=== PATIENT | female | born 1955 | race Caucasian/White ===

== ENCOUNTER 2020-01-09 19:38 | Inpatient (IN) | payer OTHER ==
--- NOTE | 2020-01-09 20:02 | PDOC ---
Rapid Medical Evaluation Chief Complaint: Altered Mental Status Medical Evaluation: Allergies Allergy/AdvReac Type Severity Reaction Status Date / Time No Known Allergies Allergy Verified 01/09/20 19:59 01/09/20 20:00 I have performed a brief in-person evaluation of this patient. The patient presents with a chief complaint of:AMS w/ ataxia since this am and off, no focal sxs and no CP, SOB, change in BM, dysuria, n/v/f/c. H/o DM Pertinent physical exam findings:stable, well marvin and A&O x 3 I have ordered the following:labs/ua/CT The patient will proceed to the ED for further evaluation. Discharge Disposition - Diagnosis AMS (altered mental status) Qualifiers: Altered mental status type: unspecified Qualified Code(s): R41.82 - Altered mental status, unspecified - Referrals - Patient Instructions - Post Discharge Activity
--- NOTE | 2020-01-09 20:18 | PDOC ---
Attending Attestation - Resident Resident Name: Alek Gatica - ED Attending Attestation I have performed the following: I have examined & evaluated the patient, The case was reviewed & discussed with the resident, I agree w/resident's findings & plan - HPI HPI: 01/09/20 21:56 see resident hpi - Physicial Exam PE: 01/09/20 21:56 see resident exam - Medical Decision Making 01/09/20 22:04 64-year-old female initially presenting with 1 day of altered mental status reported by family, upon further questioning significant other states that she has not been acting normally for months She did have some difficulty ambulating today which caused a fall which is what prompted him to send her to the hospital CT scan shows multiple areas of chronic infarct and microvascular changes Plan for admission to medical service for further evaluation Discharge - Discharge Information Problems reviewed: Yes Clinical Impression/Diagnosis: AMS (altered mental status) Qualifiers: Altered mental status type: unspecified Qualified Code(s): R41.82 - Altered mental status, unspecified - Follow up/Referral Referrals: Karen Marley MD [Primary Care Provider] - - Patient Discharge Instructions - Post Discharge Activity
--- NOTE | 2020-01-09 20:32 | PDOC ---
History of Present Illness - General Chief Complaint: Altered Mental Status Stated Complaint: DIZZINESS,AMS Time Seen by Provider: 01/09/20 20:09 - History of Present Illness Initial Comments: 01/09/20 20:30 64 yo male with pmh of DM presents to ED for blurry vision and inability to find words that started today when she woke up at 9:30 am which was about ten hours before ED arrival. According to pt her last well known was the night before. She explains she has right sided blurry vision in her eyes and inability to find words. Pt has never had symptoms in the past. Pt denies headache, cough, fevers, chills, chest pain, shortness of breath, dysuria or urinary frequency. After called where story was a little different who explained pt has been having memory loss and trouble finding words for the past two months which has been progressively worse. Pt for the last two days have been unsteady on her feet where today she fell and that is why she was brought in. Pt did not head, did not lose consciousness and was able to get right after fall. PMH: DM PSH: meds: Metformin and aspirin Allergies: denies Social: denies smoking, drinking and drugs PCP: Dr. Pinto 01/09/20 22:23 01/09/20 23:36 tPA Exclusion checklist 3-4.5h - Time Elapsed Date last known well: 01/07/20 Time last known well: 09:00 Elaspsed time: 2 Day(s) and 14 Hour(s) and 50 Minutes - Thrombolytic Therapy Candidate Is patient eligible for thrombolytic therapy: No - Ineligibility reason(s) Reasons No tPA given: Outside of window - delayed arrival NIH Stroke Scale - Last Known Well Date/Time & Onset Date Last Known Well: 01/07/20 Time Last Known Well: 09:00 - Initial Evaluation Level of consciousness: Alert Ask patient the month and their age: Answers one correctly Ask patient to open & close eyes; make fist and let go: Obeys both correctly Best gaze (horizontal eye movement): Normal Visual field testing: No visual field loss Facial paresis (Show teeth/raise eyebrows/close eyes tight): Normal symmetrical movement Motor Function: Left Arm: Normal Motor Function: Right Arm: Normal (extends arm 90 (or 45) degrees for 10 seconds without drift Motor Function: Left Leg: Drift Motor Function: Right Leg: Drift Limb Ataxia: No ataxia Sensory(Use pinprick test arms,legs,trunk,face/side to side): Normal Best language (Describe picture, name items, read sentences): Mild to moderate aphasia Dysarthria (read several words): Normal articulation Extinction and Inattention: No abnormality - Total Score NIH Stroke Scale Score: 4 Past History - Medical History Allergies/Adverse Reactions: Allergies Allergy/AdvReac Type Severity Reaction Status Date / Time No Known Allergies Allergy Verified 01/09/20 19:59 COPD: No Diabetes: Yes - Reproductive History Is Patient Now?: No - Psycho-Social/Smoking History Smoking History: Never smoked - Substance Abuse Hx (Audit-C & DAST Scrn) How often the patient has a drink containing alcohol: Never Score: In Men: 4 or > Positive; In Women: 3 or > Positive: 0 Screen Result (Pos requires Nsg. Audit-10AR): Negative In the last yr the pt used illegal drug/Rx for NonMed reason: No Score: Yes response is considered Positive: 0 Screen Result (Positive result requires Nsg. DAST-10): Negative Review of Systems - Review of Systems Comments:: 01/09/20 22:32 GENERAL/CONSTITUTIONAL: No fever or chills. No weakness. HEAD, EYES, EARS, NOSE AND THROAT: blurry vision in right eye. No ear pain or discharge. No sore throat. CARDIOVASCULAR: No chest pain or shortness of breath RESPIRATORY: No cough, wheezing, or hemoptysis. GASTROINTESTINAL: No nausea, vomiting, diarrhea or constipation. GENITOURINARY: No dysuria, frequency, or change in urination. MUSCULOSKELETAL: No joint or muscle swelling or pain. No neck or back pain. SKIN: No rash NEUROLOGIC: No headache, vertigo, loss of consciousness, or change in strength/sensation. ENDOCRINE: No increased thirst. No abnormal weight change HEMATOLOGIC/LYMPHATIC: No anemia, easy bleeding, or history of blood clots. ALLERGIC/IMMUNOLOGIC: No hives or skin allergy. *Physical Exam - Vital Signs Last Vital Signs Temp Pulse Resp BP Pulse Ox 98.0 F 85 18 147/73 99 01/09/20 19:59 01/09/20 19:59 01/09/20 19:59 01/09/20 19:59 01/09/20 19:59 - Physical Exam 01/09/20 22:26 GENERAL: Awake, alert, and oriented to person and place, in no acute distress HEAD: No signs of trauma, normocephalic, atraumatic EYES: PERRLA, EOMI, sclera anicteric, conjunctiva clear ENT: Auricles normal inspection, hearing grossly normal, nares patent, orophary nx clear without exudates. Moist mucosa NECK: Normal ROM, supple, no lymphadenopathy, JVD, or masses LUNGS: No distress, speaks full sentences, clear to auscultation bilaterally HEART: Regular rate and rhythm, normal S1 and S2, no murmurs, rubs or gallops, peripheral pulses normal and equal bilaterally. ABDOMEN: Soft, nontender, normoactive bowel sounds. No guarding, no rebound. No masses EXTREMITIES : Normal inspection, Normal range of motion, no edema. No clubbing or cyanosis. NEUROLOGICAL: Cranial nerves II through XII intact. Normal sensation throughout. 5/5 muscle strength in bilateral upper and lower ext. Finger to nose intact. Heel to connor intact. Visual darden intact. Unable to fully read sentences. Unable to correctly identify date. Pt has positive romberg test and negative pronator test. Pt has ataxic gait, but pt usually walks with walker at baseline. SKIN: Warm, Dry, normal turgor, no rashes or lesions noted Heart Score/ECG Review - ECG Impressions Comment:: 01/09/20 22:29 Normal sinus rhythm at 91 bpm Normal DC, QRS, and QT interval T wave flattening in II V2 ED Treatment Course - LABORATORY CBC & Chemistry Diagram: 01/09/20 21:20 01/09/20 21:20 Medical Decision Making - Medical Decision Making 01/09/20 22:32 64 yo female coming in with blurry vision, inability to find words, and wobbly gait for two days. Initial workup was for stroke but after further discussion with will work up for AMS and fall. Will get cbc, cmp, ekg, ct scan of head, coags, TSH, and urine. Will admit for AMS. 01/09/20 23:[address] scan showed chronic bilateral cerebral infarcts and marked periventricular and subcortical chronic micrvascular ischemic changes and mild bilateral cerebellar atrophy. Son called who agreed with fathers story. Would like call back with progress ([phone]) Pt labs showed no gross abnormalities will admit for AMS. 01/09/20 23:50 Pt HPI and ED course was spoken with DIRECTOR STATISTICAL PROGRAMMING Angelica. Pt will be admitted to Dr. Lepe. Discharge - Discharge Information Problems reviewed: Yes Clinical Impression/Diagnosis: AMS (altered mental status) Qualifiers: Altered mental status type: unspecified Qualified Code(s): R41.82 - Altered mental status, unspecified Condition: Good - Admission Yes - Follow up/Referral Referrals: Karen Marley MD [Primary Care Provider] - - Patient Discharge Instructions - Post Discharge Activity
[2020-01-09 21:31] LABS: BASO % 0.6 % (0-2.0); EOS % 2.1 % (0-4.5); HEMATOCRIT 40.6 % (32.4-45.2); HEMOGLOBIN 13.6 GM/dL (10.7-15.3); LYMPH % 19.7 % (8-40); MCH 31.4 pg (25.7-33.7); MCHC 33.4 g/dl (32.0-36.0); MEAN PLT VOLUME 9.3 fl (7.5-11.1); MONO % 9.4 % (3.8-10.2); NEUT % 68.2 % (42.8-82.8); PLATELET COUNT 242 K/MM3 (134-434); RBC 4.32 M/mm3 (3.60-5.2); RDW 13.1 % (11.6-15.6); WHITE BLOOD COUNT 7.1 K/mm3 (4.0-10.0)
[2020-01-09 21:40] LABS: INR 0.96 (0.83-1.09); PROTHROMBIN TIME (PATIENT) 11.3 SEC (9.7-13.0)
[2020-01-09 21:43] LABS: ACTIVATED PTT 29.4 SECONDS (25.2-36.5)
[2020-01-09 22:10] LABS: ALBUMIN 3.4 g/dl (3.4-5.0); BILIRUBIN,TOTAL 0.4 mg/dL (0.2-1); BLOOD UREA NITROGEN 14.4 mg/dL (7-18); CALCIUM 9.2 mg/dL (8.5-10.1); CREATININE 0.8 mg/dL (0.55-1.3); POTASSIUM 3.8 mmol/L (3.5-5.1); TOT PROT 7.1 g/dl (6.4-8.2)
[2020-01-09 22:11] LABS: CHOLESTEROL 182 mg/dL (50-200); HDL CHOLESTEROL 66 mg/dL (40-60); LDL CHOLESTEROL (ONLY SJRH) 97 mg/dL (5-100); TRIGLYCERIDES 104 mg/dL (0-150)
[2020-01-09 23:10] LABS: URINE APPEARANCE Clear; URINE BILIRUBIN Negative (NEGATIVE); URINE COLOR Yellow; URINE GLUCOSE (UA) 2+ (NEGATIVE); URINE KETONE Trace (NEGATIVE); URINE LEUK ESTERASE 1+ (NEGATIVE); URINE NITRITE Negative (NEGATIVE); URINE PROTEIN Negative (NEGATIVE); URINE UROBILINOGEN 0.2 mg/dL (0.2-1.0)
[2020-01-09] MEDS ORDERED: ASPIRIN 81 MG CHEWABLE TABLETS PO ONE (23:36)
--- NOTE | 2020-01-10 00:51 | HP ---
CHIEF COMPLAINT: AMS, Blurred Vision PCP: Deann Marley HISTORY OF PRESENT ILLNESS: This is a 64 y/o female with a PMHx of DM. Who presents to the ED for AMS, R- eye blurred vision, dysarthria, s/p fall. Patient is confused unable to provide HPI. Per ED resident, patient's provided HPI. He reports that the patient has had memory loss, search for words x 2 months. He reports patient having an unsteady gait x 2 days. ER course was notable for: (1) Head CT- no acute ICH, multiple chronic b/l cerebral infarcts, mild bilateral cerebellar atrophy (2) (3) Recent Travel: None PAST MEDICAL HISTORY: DM PAST SURGICAL HISTORY: Social History: Smoking: Denies Alcohol: Denies Drugs: Denies Lives with spouse Allergies No Known Allergies Allergy (Verified 01/09/20 19:59) HOME MEDICATIONS: REVIEW OF SYSTEMS CONSTITUTIONAL: Absent: fever, chills, diaphoresis, generalized weakness, malaise, loss of appetite, weight change HEENT: visual changes Absent: rhinorrhea, nasal congestion, throat pain, throat swelling, difficulty swallowing, mouth swelling, ear pain, eye pain CARDIOVASCULAR: Absent: chest pain, syncope, palpitations, irregular heart rate, lightheadedness, peripheral edema RESPIRATORY: Absent: cough, shortness of breath, dyspnea with exertion, orthopnea, wheezing, stridor, hemoptysis GASTROINTESTINAL: Absent: abdominal pain, abdominal distension, nausea, vomiting, diarrhea, constipation, melena, hematochezia GENITOURINARY: Absent: dysuria, frequency, urgency, hesitancy, hematuria, flank pain, genital pain MUSCULOSKELETAL: Absent: myalgia, arthralgia, joint swelling, back pain, neck pain SKIN: Absent: rash, itching, pallor HEMATOLOGIC/IMMUNOLOGIC: Absent: easy bleeding, easy bruising, lymphadenopathy, frequent infections ENDOCRINE: Absent: unexplained weight gain, unexplained weight loss, heat intolerance, cold intolerance NEUROLOGIC: unsteady gait, mental status changes Absent: headache, focal weakness or paresthesias, dizziness, seizure, bladder or bowel incontinence PSYCHIATRIC: Absent: anxiety, depression, suicidal or homicidal ideation, hallucinations. PHYSICAL EXAMINATION Vital Signs - 24 hr 01/09/20 19:59 Temperature 98.0 F Pulse Rate 85 Respiratory 18 Rate Blood Pressure 147/73 O2 Sat by Pulse 99 Oximetry (%) GENERAL: Awake, alert, and oriented to name, year, president, in no acute distress. HEAD: Normal with no signs of trauma. EYES: Pupils equal, round and reactive to light, extraocular movements intact, sclera anicteric, conjunctiva clear. No lid lag. EARS, NOSE, THROAT: Ears normal, nares patent, oropharynx clear without exudat es. Moist mucous membranes. NECK: Normal range of motion, supple without lymphadenopathy, JVD, or masses. LUNGS: Breath sounds equal, clear to auscultation bilaterally. No wheezes, and no crackles. No accessory muscle use. HEART: Regular rate and rhythm, normal S1 and S2 without murmur, rub or gallop. ABDOMEN: Soft, nontender, not distended, normoactive bowel sounds, no guarding, no rebound, no masses. No hepatomegaly or splenomegaly. MUSCULOSKELETAL: Normal range of motion at all joints. No bony deformities or tenderness. No CVA tenderness. UPPER EXTREMITIES: 2+ pulses, warm, well-perfused. No cyanosis. No clubbing. No peripheral edema. LOWER EXTREMITIES: 2+ pulses, warm, well-perfused. No calf tenderness. No peripheral edema. NEUROLOGICAL: Cranial nerves II-XII intact. Normal speech. Gait not observed. PSYCHIATRIC: Cooperative. Good eye contact. Appropriate mood and affect. SKIN: Warm, dry, normal turgor, no rashes or lesions noted, normal capillary refill. Laboratory Results - last 24 hr 01/09/20 01/09/20 01/09/20 20:28 21:20 21:20 WBC RBC Hgb Hct MCV MCH MCHC RDW Plt Count MPV Absolute Neuts (auto) Neutrophils % Lymphocytes % Monocytes % Eosinophils % Basophils % Nucleated RBC % PT with INR 11.30 INR 0.96 PTT (Actin FS) 29.4 Sodium Cancelled Potassium Cancelled Chloride Cancelled Carbon Dioxide Cancelled Anion Gap Cancelled BUN Cancelled Creatinine Cancelled Est GFR (CKD-EPI)AfAm Cancelled Est GFR (CKD-EPI)NonAf Cancelled POC Glucometer 181 Random Glucose Cancelled Calcium Cancelled Total Bilirubin Cancelled AST Cancelled ALT Cancelled Alkaline Phosphatase Cancelled Creatine Kinase 76 Troponin I < 0.02 Total Protein Cancelled Albumin Cancelled Triglycerides 104 Cholesterol 182 Total LDL Cholesterol 97 HDL Cholesterol 66 H TSH Free T4 Urine Color Urine Appearance Urine pH Ur Specific [place] Urine Protein Urine Glucose (UA) Urine Ketones Urine Blood Urine Nitrite Urine Bilirubin Urine Urobilinogen Ur Leukocyte Esterase Alcohol, Quantitative < 3 01/09/20 01/09/20 01/09/20 21:20 21:20 22:35 WBC 7.1 RBC 4.32 Hgb 13.6 Hct 40.6 MCV 94.0 MCH 31.4 MCHC 33.4 RDW 13.1 Plt Count 242 MPV 9.3 Absolute Neuts (auto) 4.8 Neutrophils % 68.2 Lymphocytes % 19.7 Monocytes % 9.4 Eosinophils % 2.1 Basophils % 0.6 Nucleated RBC % 0 PT with INR INR PTT (Actin FS) Sodium 139 Potassium 3.8 Chloride 103 Carbon Dioxide 30 Anion Gap 6 L BUN 14.4 Creatinine 0.8 Est GFR (CKD-EPI)AfAm 91.58 Est GFR (CKD-EPI)NonAf 79.01 POC Glucometer Random Glucose 186 H Calcium 9.2 Total Bilirubin 0.4 AST 23 ALT 17 Alkaline Phosphatase 104 Creatine Kinase Troponin I Total Protein 7.1 Albumin 3.4 Triglycerides Cholesterol Total LDL Cholesterol HDL Cholesterol TSH 2.71 Free T4 1.18 Urine Color Yellow Urine Appearance Clear Urine pH 7.0 Ur Specific [place] 1.020 Urine Protein Negative Urine Glucose (UA) 2+ H Urine Ketones Trace Urine Blood Negative Urine Nitrite Negative Urine Bilirubin Negative Urine Urobilinogen 0.2 Ur Leukocyte Esterase 1+ H Alcohol, Quantitative ASSESSMENT/PLAN: This is a 64 y/o female with a PMHx of DM. Admitted to Telemetry for Acute Metabolic Encephalopathy, TIA for further evaluation of their emergent condition. Plan: See Problem List FEN D50.45%NS@42ml/hr Replete lytes prn NPO DVT ppx OOB SCDs Heparin SQ Dispo: Requires Inpatient Care Family Medical History Family History: Unable to Obtain Problem List - Problem (1) TIA (transient ischemic attack) Assessment/Plan: NIHSS [address] showed- no acute pathology, multiple chronic b/l cerebral infarcts, mild b/l cerebellar atrophy Appreciate Neurology consult Carotid Doppler r/o Stenosis Neuro checks Aspiration Precautions Cardiac monitoring Swallow Eval NPO Monitor CBC, CMP Fall Precautions PT eval Code(s): G45.9 - TRANSIENT CEREBRAL ISCHEMIC ATTACK, UNSPECIFIED (2) Acute metabolic encephalopathy Assessment/Plan: Likely secondary to TIA Head CT- neg ICH, multiple chronic bilateral cerebral infarcts. mild bilateral cerebellar atrophy Appreciate Neurology consult Neurochecks Aspiration Precautions Cardiac monitoring Swallow Eval NPO Monitor CBC, CMP Fall Precautions PT eval Consider MRI Brain- will defer to Neurology Code(s): G93.41 - METABOLIC ENCEPHALOPATHY (3) Diabetes mellitus Assessment/Plan: stable BGMs ISS when diet resumed HgbA1c in am Code(s): E11.9 - TYPE 2 DIABETES MELLITUS WITHOUT COMPLICATIONS (4) Encounter for screening laboratory testing for COVID-19 virus Assessment/Plan: Low Risk Covid PCR-pending Isolation Precautions Code(s): Z11.59 - ENCOUNTER FOR SCREENING FOR OTHER VIRAL DISEASES Visit type - Emergency Visit Emergency Visit: Yes ED Registration Date: 01/09/20 Care time: The patient presented to the Emergency Department on the above date and was hospitalized for further evaluation of their emergent condition. - New Patient This patient is new to me today: Yes Date on this admission: 01/09/20 - Critical Care Critical Care patient: No
[2020-01-10] MEDS ORDERED: ASPIRIN 81 MG CHEWABLE TABLETS ONE ×2 (02:40→11:33)
[2020-01-10] MEDS: DEXTROSE 5%-0.45% SALINE 1,000 ML IV SCH (03:59)
[2020-01-10 07:13] LABS: BASO % 0.8 % (0-2.0); EOS % 2.8 % (0-4.5); HEMATOCRIT 40.7 % (32.4-45.2); HEMOGLOBIN 13.7 GM/dL (10.7-15.3); LYMPH % 19.1 % (8-40); MCH 31.7 pg (25.7-33.7); MCHC 33.7 g/dl (32.0-36.0); MONO % 8.3 % (3.8-10.2); PLATELET COUNT 213 K/MM3 (134-434); RBC 4.33 M/mm3 (3.60-5.2); RDW 12.9 % (11.6-15.6); WHITE BLOOD COUNT 6.7 K/mm3 (4.0-10.0)
[2020-01-10 07:25] LABS: ALBUMIN 3.2 g/dl (3.4-5.0); BILIRUBIN,TOTAL 0.5 mg/dL (0.2-1); BLOOD UREA NITROGEN 9.5 mg/dL (7-18); CALCIUM 9.1 mg/dL (8.5-10.1); CREATININE 0.7 mg/dL (0.55-1.3); MAGNESIUM 1.8 mg/dL (1.8-2.4); POTASSIUM 3.1 mmol/L (3.5-5.1); TOT PROT 6.6 g/dl (6.4-8.2)
[2020-01-10] MEDS ORDERED: KCL 10 MEQ IVPB 10 MEQ/100 ML INFUS.BAG IVPB ONE (09:00)
[2020-01-10] MEDS: KCL 10 MEQ IVPB 10 MEQ/100 ML INFUS.BAG IVPB SCH ×3 (09:05→11:32)
--- NOTE | 2020-01-10 09:08 | EKG ---
Test Reason : Blood Pressure : / mmHG Vent. Rate : 078 BPM Atrial Rate : 078 BPM P-R Int : 128 ms QRS Dur : 090 ms QT Int : 388 ms P-R-T Axes : -22 004 033 degrees QTc Int : 442 ms NORMAL SINUS RHYTHM INFERIOR INFARCT , AGE UNDETERMINED CANNOT RULE OUT ANTERIOR INFARCT , AGE UNDETERMINED ABNORMAL ECG NO PREVIOUS ECGS AVAILABLE Confirmed by Angel Barker MD ([id number]) on 01/10/2020 9:08:08 AM Referred By: Confirmed By:Angel Barker MD
[2020-01-10] MEDS ORDERED: KCL 10 MEQ IVPB 20 MEQ/200 ML INFUS.BAG IVPB ONE (09:57)
[2020-01-10] MEDS ORDERED: ENOXAPARIN NA (PORCINE) 40 MG/0.4 ML DISP.SYRIN SQ ONE (10:02)
[2020-01-10] MEDS: ENOXAPARIN NA (PORCINE) 40 MG/0.4 ML DISP.SYRIN SQ SCH (10:07)
--- NOTE | 2020-01-10 10:09 | CONSULT ---
Admitting History and Physical - Admission History of Present Illness: 64 y/o female with a PMHx of DM. Who presents to the ED for AMS, R- eye blurred vision, dysarthria, s/p fall. Patient is confused unable to provide HPI. Per ED resident, patient's provided HPI. He reports that the patient has had memory loss, search for words x 2 months. He reports patient having an unsteady gait x [address]- no acute ICH, multiple chronic b/l cerebral infarcts, mild bilateral cerebellar atrophy Selected Entries 01/10/20 01/10/20 03:17 05:31 Temperature 98.2 F 97.3 F L Pulse Rate [ 83 Apical] Pulse Rate [ 87 Left Radial] Blood Pressure 149/70 121/79 [Left] O2 Sat by Pulse 98 96 Oximetry (%) Oxygen Delivery Room Air Room Air Method Laboratory Tests 01/09/20 01/10/20 01/10/20 21:20 06:00 06:20 WBC 7.1 6.7 COVID-19 (RYLIE) Pending Passed Dysphagia screening. 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 [employer] History - Admission Reason For Visit: ALTERED MENTAL STATUS - Diagnostics X-ray: Report Reviewed CT Scan: Report Reviewed MRI: Pending - General Mental Status: Alert and Oriented ([facility], [facility],Dec 2019), Awake and Alert, Able to Follow Commands Attention: Intact Ability to Follow Directions: Good Head/Neck Control: Good - Hearing Hearing: Functional Speech Evaluation - Communication Primary Language: GEORGIAN Communication: Yes: Aphasia (anomia with delayed word retrieval.) Oral Expression Ability: Yes: Mild Impairment - Speech Production Able to Make Needs Known: Yes: WNL, Mildly Impaired Intelligibility: Yes: WNL - Speech Characteristics Voice Loudness: Normal Voice Pitch: Yes: Normal Voice Phonatory-based Quality: Yes: Normal Speech Clarity: < 100% Nasal Resonance: Normal Articulation: Yes: Precise - Language/Auditory Comprehension Observation: Able to respond to yes/no queries: Yes, Yes/No Confusion: No, Comprehends Conversational Speech: Yes - Language/Verbal Expression Aphasia: Yes: Anomia Able to Respond to Simple Queries: Yes: Mildly Impaired Able to Communicate Wants and Needs: Yes: Mildly Impaired Functional Communication Status: Yes: Mildly Impaired - Swallow Evaluation/Bedside Assessment Oral Secretions: Yes: WFL Dentition: Yes: Adequate, Missing Teeth Facial Symmetry at Rest: Symmetrical Facial Symmetry on Retraction: Symmetrical Facial Movement: Controlled Sensation: Normal Against Resistance Opening: Normal Against Resistance Closing: Normal Pucker Lips: Normal Smile: Normal Lingual Movement: Normal, Symmetric Lingual Speed of Movement: Normal Lingual Movement Strgth Against Opposition: Normal Lingual Movement Characteristics: Normal Laryngeal Movement: Labored,delay initiation Rate of Intake: WFL Bolus Size: WFL Labial Seal: WFL Chewing: Impaired (missing dentition posteriorally, requested chopped food for increased ease of mastication) Oral Prep Time: WFL A-P Transit: WFL Pocketing: None Timing of Swallow: Delayed Coughing/Throat Clear: No Recommendations - Speech Evaluation, Impression/Plan Impression: Fully oriented with good recall about pending Presidential election. Mild word retrieval difficulty in conversation. Pt aware, stating this has been occuring recently, before admission. She reports that she is also incontinent of Urine x 2 weeks. Good confrontation naming - Disposition Discharge to: To be Determined - Dysphagia Impressions/Plan Dysphagia Impressions: Minimal Impairment, Ongoing Evaluation *Silent aspiration: cannot be R/O at bedside Dysphagia Treatment Plan: Trial Feedings, Safe Rate, 1/2 tsp. at a time, Elevate HOB during feed Recommendations: Modified Barium Swallow (if cough, congestion, fever) - Recommendations Diet Consistency: Other (Regular soft,chopped diet) Medication Administration: Whole with water Liquids: Thin Liquids
[2020-01-10 10:10] LABS: COCAINE, UR NEGATIVE ng/ml (CUTOFF=300); OPIATES, URI NEGATIVE ng/ml (CUTOFF=300); PHENCYCLIDINE,URINE NEGATIVE ng/ml (CUTOFF=25); URINE BARBITURATES NEGATIVE ng/ml (CUTOFF=200)
[2020-01-10 10:18] LABS: METHADONE, UR NEGATIVE ng/ml (CUTOFF=300); URINE AMPHETAMINES NEGATIVE ng/ml (CUTOFF=500); URINE BENZODIAZEPINES NEGATIVE ng/ml (CUTOFF=200)
[2020-01-10] MEDS ORDERED: ASPIRIN 81 MG CHEWABLE TABLETS PO SCH (10:30)
--- NOTE | 2020-01-10 14:28 | ECHO ---
Name: LAKSHMITONIOSAM Feng Exam:Adult Echocardiogram Study Date: 01/10/2020 01:27 PM Age: 64 yrs Reason For Study: r/o pfo hx TIA cva MMode/2D Measurements & Calculations IVSd: 1.2 cm Ao root diam: 3.0 cm LVIDd: 3.7 cm LA dimension: 2.7 cm LVIDs: 2.5 cm LVPWd: 1.5 cm LVPWs: 1.4 cm EDV(Teich): 58.5 ml ESV(Teich): 22.2 ml LVOT diam: 2.0 cm RV S Brannon: 14.0 cm/sec Doppler Measurements & Calculations MV E max brannon: 64.7 cm/sec Ao V2 max: 121.7 cm/sec MV A max brannon: 88.8 cm/sec Ao max P.9 mmHg MV E/A: 0.73 RADHA(V,D): 2.6 cm2 MV dec time: 0.21 sec LV V1 max P.8 mmHg PA V2 max: 120.8 cm/sec LV V1 max: 97.2 cm/sec PA max P.9 mmHg Lat Peak E' Brannon: 6.4 cm/sec Lat E/e': 10.2 Procedure A complete two-dimensional transthoracic echocardiogram was performed (2D, M-mode, Doppler and color flow Doppler). Left Ventricle There is moderate concentric left ventricular hypertrophy. The left ventricle is normal in size. Left ventricular systolic function is normal. Ejection Fraction = 65%. E/A reversal consistent with but no t diagnostic of poor LV compliance. The left ventricular wall motion is normal. Right Ventricle The right ventricle is normal in size and function. Atria Normal left and right atrial size and function. There is no Doppler evidence for an atrial septal def ect. Mitral Valve The mitral valve is normal in structure and function. There is trace mitral regurgitation. Tricuspid Valve The tricuspid valve is normal in structure and function. There is trace tricuspid regurgitation. Ther e was insufficient TR detected to calculate RV systolic pressure. Pulmonic Valve The pulmonic valve is normal in structure and function. Great Vessels The aortic root is normal size. Pericardium/Pleura There is no pericardial effusion. There is no pleural effusion. Interpretation Summary The left ventricle is normal in size. There is moderate concentric left ventricular hypertrophy. Left ventricular systolic function is normal. Ejection Fraction = 65%. There is no Doppler evidence for an atrial septal defect. There is trace mitral regurgitation. There is trace tricuspid regurgitation. MD Angel Barker 01/10/2020 02:27 PM
--- NOTE | 2020-01-10 15:49 | PN ---
Teaching Attending Note Name of Resident: Mj Carrillo ATTENDING PHYSICIAN STATEMENT I saw and evaluated the patient. I reviewed the resident's note and discussed the case with the resident. I agree with the resident's findings and plan as documented. SUBJECTIVE: Patient reports feeling well, has no complaints OBJECTIVE: Vital Signs Period Temp Pulse Resp BP Sys/Zeng Pulse Ox Last 24 Hr 97.3 F-98.3 F 83-100 18-20 116-159/70-87 96-99 Physical Exam as per resident note ASSESSMENT AND PLAN: 64 y/o F with PMH as noted who presents with vision changes, dysarthria and hx of falls. TIA: Patient noted to have multiple old stroke on CT Head Carotid Doppler noted Echo with bubble study, MRI/MRA Continue ASA Statin Neuro Consultation speech/swallow eval PT/OT Eval Rest of plan as per resident note
--- NOTE | 2020-01-10 17:11 | PN ---
Physical Exam: SUBJECTIVE: No overnight events. Patient seen and examined. Endorses blurred vision in R eye improved. No complaints. OBJECTIVE: Vital Signs Period Temp Pulse Resp BP Sys/Zeng Pulse Ox Last 24 Hr 97.3 F-98.3 F 83-100 18-20 116-159/70-87 96-99 GENERAL: The patient is awake, alert, and fully oriented, in no acute distress. mildly aphasic HEENT: Normal with no signs of trauma. No ptosis. moist mucous membranes. LUNGS: Breath sounds equal, clear to auscultation bilaterally, no wheezes, no crackles, no accessory muscle use. HEART: Regular rate and rhythm, S1, S2 without murmur, rub or gallop. ABDOMEN: Soft, nontender, nondistended, normoactive bowel sounds EXTREMITIES: 2+ pulses, warm, well-perfused, no edema. NEUROLOGICAL: Cranial nerves II through XII grossly intact. slightly slurred speech. limps with R foot when ambulating. Strength 5/5 throughout. sensation intact throughout. Cerebellar function (finger to nose, heel to connor, rapid alternating movements) intact. During Romberg, pt swayed, but did NOT fall PSYCH: Normal mood, normal affect. SKIN: Warm, dry, normal turgor, no rashes or lesions noted Laboratory Results - last 24 hr 01/09/20 01/09/20 01/09/20 20:28 21:20 21:20 WBC RBC Hgb Hct MCV MCH MCHC RDW Plt Count MPV Absolute Neuts (auto) Neutrophils % Lymphocytes % Monocytes % Eosinophils % Basophils % Nucleated RBC % PT with INR 11.30 INR 0.96 PTT (Actin FS) 29.4 Sodium Cancelled Potassium Cancelled Chloride Cancelled Carbon Dioxide Cancelled Anion Gap Cancelled BUN Cancelled Creatinine Cancelled Est GFR (CKD-EPI)AfAm Cancelled Est GFR (CKD-EPI)NonAf Cancelled POC Glucometer 181 Random Glucose Cancelled Hemoglobin A1c % Calcium Cancelled Magnesium Total Bilirubin Cancelled AST Cancelled ALT Cancelled Alkaline Phosphatase Cancelled Creatine Kinase 76 Troponin I < 0.02 Total Protein Cancelled Albumin Cancelled Triglycerides 104 Cholesterol 182 Total LDL Cholesterol 97 HDL Cholesterol 66 H Vitamin B12 TSH Free T4 Urine Color Urine Appearance Urine pH Ur Specific [place] Urine Protein Urine Glucose (UA) Urine Ketones Urine Blood Urine Nitrite Urine Bilirubin Urine Urobilinogen Ur Leukocyte Esterase Opiates Screen Methadone Screen Barbiturate Screen Phencyclidine Screen Ur Amphetamines Screen MDMA (Ecstasy) Screen Benzodiazepines Screen Cocaine Screen U Marijuana (THC) Screen Alcohol, Quantitative < 3 Blood Type Antibody Screen 01/09/20 01/09/20 01/09/20 21:20 21:20 22:35 WBC 7.1 RBC 4.32 Hgb 13.6 Hct 40.6 MCV 94.0 MCH 31.4 MCHC 33.4 RDW 13.1 Plt Count 242 MPV 9.3 Absolute Neuts (auto) 4.8 Neutrophils % 68.2 Lymphocytes % 19.7 Monocytes % 9.4 Eosinophils % 2.1 Basophils % 0.6 Nucleated RBC % 0 PT with INR INR PTT (Actin FS) Sodium 139 Potassium 3.8 Chloride 103 Carbon Dioxide 30 Anion Gap 6 L BUN 14.4 Creatinine 0.8 Est GFR (CKD-EPI)AfAm 91.58 Est GFR (CKD-EPI)NonAf 79.01 POC Glucometer Random Glucose 186 H Hemoglobin A1c % Calcium 9.2 Magnesium Total Bilirubin 0.4 AST 23 ALT 17 Alkaline Phosphatase 104 Creatine Kinase Troponin I Total Protein 7.1 Albumin 3.4 Triglycerides Cholesterol Total LDL Cholesterol HDL Cholesterol Vitamin B12 TSH 2.71 Free T4 1.18 Urine Color Yellow Urine Appearance Clear Urine pH 7.0 Ur Specific [place] 1.020 Urine Protein Negative Urine Glucose (UA) 2+ H Urine Ketones Trace Urine Blood Negative Urine Nitrite Negative Urine Bilirubin Negative Urine Urobilinogen 0.2 Ur Leukocyte Esterase 1+ H Opiates Screen Methadone Screen Barbiturate Screen Phencyclidine Screen Ur Amphetamines Screen MDMA (Ecstasy) Screen Benzodiazepines Screen Cocaine Screen U Marijuana (THC) Screen Alcohol, Quantitative Blood Type Antibody Screen 01/10/20 01/10/20 01/10/20 06:00 06:00 06:00 WBC 6.7 RBC 4.33 Hgb 13.7 Hct 40.7 MCV 94.0 MCH 31.7 MCHC 33.7 RDW 12.9 Plt Count 213 MPV 10.0 Absolute Neuts (auto) 4.6 Neutrophils % 69.0 Lymphocytes % 19.1 Monocytes % 8.3 Eosinophils % 2.8 Basophils % 0.8 Nucleated RBC % 0 PT with INR INR PTT (Actin FS) Sodium 140 Potassium 3.1 L Chloride 105 Carbon Dioxide 24 Anion Gap 11 BUN 9.5 Creatinine 0.7 Est GFR (CKD-EPI)AfAm 107.62 Est GFR (CKD-EPI)NonAf 92.86 POC Glucometer Random Glucose 189 H Hemoglobin A1c % 6.1 Calcium 9.1 Magnesium 1.8 Total Bilirubin 0.5 AST 13 L ALT 15 Alkaline Phosphatase 80 Creatine Kinase Troponin I Total Protein 6.6 Albumin 3.2 L Triglycerides Cholesterol Total LDL Cholesterol HDL Cholesterol Vitamin B12 TSH Free T4 Urine Color Urine Appearance Urine pH Ur Specific [place] Urine Protein Urine Glucose (UA) Urine Ketones Urine Blood Urine Nitrite Urine Bilirubin Urine Urobilinogen Ur Leukocyte Esterase Opiates Screen Methadone Screen Barbiturate Screen Phencyclidine Screen Ur Amphetamines Screen MDMA (Ecstasy) Screen Benzodiazepines Screen Cocaine Screen U Marijuana (THC) Screen Alcohol, Quantitative Blood Type Antibody Screen 01/10/20 01/10/20 01/10/20 06:00 08:35 09:00 WBC RBC Hgb Hct MCV MCH MCHC RDW Plt Count MPV Absolute Neuts (auto) Neutrophils % Lymphocytes % Monocytes % Eosinophils % Basophils % Nucleated RBC % PT with INR INR PTT (Actin FS) Sodium Potassium Chloride Carbon Dioxide Anion Gap BUN Creatinine Est GFR (CKD-EPI)AfAm Est GFR (CKD-EPI)NonAf POC Glucometer Random Glucose Hemoglobin A1c % Calcium Magnesium Total Bilirubin AST ALT Alkaline Phosphatase Creatine Kinase Troponin I Total Protein Albumin Triglycerides Cholesterol Total LDL Cholesterol HDL Cholesterol Vitamin B12 365 TSH Free T4 Urine Color Urine Appearance Urine pH Ur Specific [place] Urine Protein Urine Glucose (UA) Urine Ketones Urine Blood Urine Nitrite Urine Bilirubin Urine Urobilinogen Ur Leukocyte Esterase Opiates Screen Negative Methadone Screen Negative Barbiturate Screen Negative Phencyclidine Screen Negative Ur Amphetamines Screen Negative MDMA (Ecstasy) Screen Negative Benzodiazepines Screen Negative Cocaine Screen Negative U Marijuana (THC) Screen Negative Alcohol, Quantitative Blood Type O POSITIVE Antibody Screen Negative Active Medications Generic Name Dose Route Start Last Admin Trade Name Freq PRN Reason Stop Dose Admin Aspirin 81 mg 01/10/20 10:30 01/10/20 11:40 Asa - PO 81 mg DAILY ZAKIYA Administration Atorvastatin Calcium 80 mg 01/10/20 22:00 Lipitor - PO HS ZAKIYA Enoxaparin Sodium 40 mg 01/10/20 10:00 01/10/20 10:07 Lovenox - SQ 40 mg DAILY ZAKIYA Administration Dextrose/Sodium Chloride 1,000 mls @ 42 mls/hr 01/10/20 00:45 01/10/20 03:59 D5-1/2ns - IV 42 mls/hr ASDIR ZAKIYA Administration CTH: multiple chronic b/l cerebral infarcts basal ganglia, frontal mei radiata. Punctuate chronic R thalamic infarct. Low attention focus in R upper delvin>chronic infarct vs wallerian degeneration. Periventricular & subcortical chronic microvascular ischemic changes. Mild b/l cerebellar atrophy CXR: weak inspiratory effort w/ resultant large heart EKG: NSR, 78 bpm, inferior infarct, age undetermined, QTC: 442 ASSESSMENT/PLAN: 64 F PMH DM p/w R-sided blurry vision for 1 day and aphasia. endorsed worsening Memory loss and aphasia X 2months. #CVA -CTH: no acute intracranial pathology. chronic infarcts. -MRI brain: multiple small non-hemorrhagic ACUTE infarctions in the lower and upper aspects of the delvin, R temporal lobe, L & R temporal lobes. Old infarct L pairetal lobe w/ residual enecephaloamalcia -MRA: no evidence of aneursym of [place] of [place], basilar artery stenosis, dissection,or occlusion. Findings suggestive of enalrged pituatiary gland. correlated w/ MRI -Carotid US: mild intimal thickening, minimal plaque build up at common carotid bifurcation. w/o evidence of hemodynamically signfiicant stenosis -Echo: LV nml size. Moderate concentric LVH. LV systolic function normal. EF: 65%. no doppler evidence for Atrial septa defect. trace mitral/tricuspid regurg -neuro checks -aspiration precaution -fall precautions: on 1:1 b/c pt fell today -passed speech and swallow -NIHSS 3 -f/u PT eval -d/w with neuro (Dr. Nguyen). added Plavix 75 mg PO Daily. consider loop recording for afib. -Pt is on tele. will monitor for afib. #DM BGM ISS HgbA1C 6.1 #FEN d5-1/2 NS @42 ml/hr monitor lytes diabetic diet (soft,chopped diet) #DVT ppx lovenox 40 mg sq Visit type - Emergency Visit Emergency Visit: Yes ED Registration Date: 01/09/20 Care time: The patient presented to the Emergency Department on the above date and was hospitalized for further evaluation of their emergent condition. - New Patient This patient is new to me today: Yes Date on this admission: 01/10/20 - Critical Care Critical Care patient: No ATTENDING PHYSICIAN STATEMENT I saw and evaluated the patient. I reviewed the resident's note and discussed the case with the resident. I agree with the resident's findings and plan as documented. SUBJECTIVE: OBJECTIVE: ASSESSMENT AND PLAN:
[2020-01-10] MEDS ORDERED: CLOPIDOGREL BISULFATE 75 MG TABLET (FP) ONE (17:55)
[2020-01-10] MEDS: CLOPIDOGREL BISULFATE 75 MG TABLET (FP) PO SCH (18:02)
[2020-01-10 19:02] VITALS: BMI 25.5
[2020-01-10] MEDS: INSULIN SLIDING SCALE (NOVOLOG) 1 VIAL SQ SCH (21:11)
[2020-01-10] MEDS: ATORVASTATIN CA 80 MG TABLET (FP) PO SCH (21:11)
[2020-01-11] MEDS: INSULIN SLIDING SCALE (NOVOLOG) 1 VIAL SQ SCH ×4 (06:40→22:35)
[2020-01-11] MEDS: DEXTROSE 5%-0.45% SALINE 1,000 ML IV SCH (07:11)
[2020-01-11 07:47] LABS: HEMATOCRIT 42.8 % (32.4-45.2); HEMOGLOBIN 14.8 GM/dL (10.7-15.3); MCHC 34.4 g/dl (32.0-36.0); MEAN PLT VOLUME 9.9 fl (7.5-11.1); PLATELET COUNT 247 K/MM3 (134-434); RBC 4.61 M/mm3 (3.60-5.2); RDW 13.1 % (11.6-15.6); WHITE BLOOD COUNT 6.6 K/mm3 (4.0-10.0)
[2020-01-11 08:18] LABS: BLOOD UREA NITROGEN 5.8 mg/dL (7-18); CALCIUM 9.8 mg/dL (8.5-10.1); CREATININE 0.7 mg/dL (0.55-1.3); PHOSPHOROUS 3.5 mg/dL (2.5-4.9); POTASSIUM 3.5 mmol/L (3.5-5.1)
[2020-01-11] MEDS: CLOPIDOGREL BISULFATE 75 MG TABLET (FP) PO SCH (09:09)
[2020-01-11] MEDS: ENOXAPARIN NA (PORCINE) 40 MG/0.4 ML DISP.SYRIN SQ SCH (09:10)
--- NOTE | 2020-01-11 10:20 | PN ---
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 Tolerating well. Selected Entries 01/11/20 01/11/20 01/11/20 05:32 08:05 10:22 Breakfast 75% Diet Tolerated Well Temperature 97.9 F 97.9 F Pulse Rate 94 H 85 Blood Pressure 175/91 H 165/89 Laboratory Tests 01/11/20 06:20 WBC 6.6 Verbal, euphoric, labile Pt aware that she is in the hospital and has had a stroke Verbal, anomia in propositional speech tasks but generally appropriate. Impaired insight, needs reminders not to get OOB Suggest-Acute rehab
[2020-01-11] MEDS ORDERED: INSULIN (NOVOLOG) ASPART 100 UNITS/ML 10ML VIAL ONE ×2 (11:17→16:39)
--- NOTE | 2020-01-11 14:18 | PN ---
Teaching Attending Note Name of Resident: Mj Carrillo ATTENDING PHYSICIAN STATEMENT I saw and evaluated the patient. I reviewed the resident's note and discussed the case with the resident. I agree with the resident's findings and plan as documented. SUBJECTIVE: Pt had 2 falls yesterday, no head trauma, MRI brain completed following the fall OBJECTIVE: Vital Signs Period Temp Pulse Resp BP Sys/Zeng Pulse Ox Last 24 Hr 97.2 F-98.3 F 75-100 17-18 138-175/62-91 94-98 GENERAL: Awake, alert, No distress. HEAD: Normal with no signs of trauma. EYES: Pupils equal, round and reactive to light, extraocular movements intact, sclera anicteric, conjunctiva clear. No lid lag. EARS, NOSE, THROAT: Ears normal, nares patent, oropharynx clear without exudates. Moist mucous membranes. NECK: Normal range of motion, No JVD LUNGS: Breath sounds equal, clear to auscultation bilaterally. No wheezes, and no crackles. No accessory muscle use. HEART: Regular rate and rhythm, normal S1 and S2 without murmur, rub or gallop. ABDOMEN: Soft, nontender, not distended, normoactive bowel sounds, no guarding, no rebound, no masses. No hepatomegaly or splenomegaly. MUSCULOSKELETAL: Normal range of motion at all joints. No bony deformities or tenderness. No CVA tenderness. NEUROLOGICAL: Cranial nerves II-XII intact. Aphasia, slurred speech, R. Foot Limp PSYCHIATRIC: Cooperative. Good eye contact. SKIN: Warm, dry, normal turgor, no rashes or lesions noted. Echo, Carotid Doppler, MRI/MRA, CTHead noted ASSESSMENT AND PLAN: 64 y/o F with PMH as noted who presents with vision changes, dysarthria and hx of falls. New onset CVA/TIA Patient noted to have multiple old stroke on CT Head, Acute strokes seen on MRI No signs of PFO Start Plavix Appreciate Neuro Recs Continue Statin, LDL goal <70 PT/OT for Rehab placement Continue 1:1 Observation as patient has had falls while inpatient BP Goal <140/90 by discharge Rest of plan as per resident note
--- NOTE | 2020-01-11 15:42 | PN ---
Physical Exam: SUBJECTIVE: Pt was agitated overnight. [place] vest was ordered by night team. Patient seen and examined. Pt endorses sleeping well. No complaints. Endorses blurred vision in R eye improved. On telemonitoring, NSR, QTC 438. Refused neuro exam in AM, but reassessed in PM. Spoke to pt's son and gave him an update. OBJECTIVE: Vital Signs Period Temp Pulse Resp BP Sys/Zeng Pulse Ox Last 24 Hr 97.2 F-98.2 F 75-97 16-18 138-175/62-91 94-98 GENERAL: The patient is awake, alert, and fully oriented, in no acute distress. mildly aphasic HEENT: Normal with no signs of trauma. No ptosis. moist mucous membranes. LUNGS: Breath sounds equal, clear to auscultation bilaterally, no wheezes, no crackles, no accessory muscle use. HEART: Regular rate and rhythm, S1, S2 without murmur, rub or gallop. ABDOMEN: Soft, nontender, nondistended, normoactive bowel sounds EXTREMITIES: 2+ pulses, warm, well-perfused, no edema. NEUROLOGICAL: Cranial nerves II through XII grossly intact. slightly slurred speech. gait not assessed. Strength 5/5 throughout. sensation intact throughout. Cerebellar function (finger to nose, heel to connor, rapid alternating movements) intact. PSYCH: Normal mood, normal affect. SKIN: Warm, dry, normal turgor, no rashes or lesions noted Laboratory Results - last 24 hr 01/10/20 01/10/20 01/11/20 06:20 20:59 06:06 WBC RBC Hgb Hct MCV MCH MCHC RDW Plt Count MPV Sodium Potassium Chloride Carbon Dioxide Anion Gap BUN Creatinine Est GFR (CKD-EPI)AfAm Est GFR (CKD-EPI)NonAf POC Glucometer 157 133 Random Glucose Calcium Phosphorus Magnesium COVID-19 (RYLIE) Not detected 01/11/20 01/11/20 01/11/20 06:20 06:20 11:16 WBC 6.6 RBC 4.61 Hgb 14.8 Hct 42.8 MCV 93.0 MCH 32.0 MCHC 34.4 RDW 13.1 Plt Count 247 MPV 9.9 Sodium 140 Potassium 3.5 Chloride 105 Carbon Dioxide 24 Anion Gap 11 BUN 5.8 L Creatinine 0.7 Est GFR (CKD-EPI)AfAm 107.62 Est GFR (CKD-EPI)NonAf 92.86 POC Glucometer 208 Random Glucose 147 H Calcium 9.8 Phosphorus 3.5 Magnesium 2.0 COVID-19 (RYLIE) Active Medications Generic Name Dose Route Start Last Admin Trade Name Coronaq PRN Reason Stop Dose Admin Atorvastatin Calcium 80 mg 01/10/20 22:00 01/10/20 21:11 Lipitor - PO 80 mg HS ZAKIYA Administration Clopidogrel Bisulfate 75 mg 01/10/20 17:30 01/11/20 09:09 Plavix - PO 75 mg DAILY ZAKIYA Administration Enoxaparin Sodium 40 mg 01/10/20 10:00 01/11/20 09:10 Lovenox - SQ 40 mg DAILY ZAKIYA Administration Insulin Aspart 1 vial 01/10/20 22:00 01/11/20 11:29 Novolog Vial Sliding Scale - SQ 6 units ACHS ZAKIYA Administration Protocol Losartan Potassium 100 mg 01/11/20 14:15 Cozaar - PO DAILY ZAKIYA Metoprolol Succinate 50 mg 01/11/20 14:15 Toprol Xl - PO DAILY ZAKIYA CTH: multiple chronic b/l cerebral infarcts basal ganglia, frontal mei radiata. Punctuate chronic R thalamic infarct. Low attention focus in R upper delvin>chronic infarct vs wallerian degeneration. Periventricular & subcortical chronic microvascular ischemic changes. Mild b/l cerebellar atrophy CXR: weak inspiratory effort w/ resultant large heart EKG: NSR, 78 bpm, inferior infarct, age undetermined, QTC: 442 -MRI brain: multiple small non-hemorrhagic ACUTE infarctions in the lower and upper aspects of the delvin, R temporal lobe, L & R temporal lobes. Old infarct L pairetal lobe w/ residual enecephaloamalcia -MRA: no evidence of aneursym of [place] of [place] of garza, basilar artery stenosis, dissection,or occlusion. Findings suggestive of enalrged pituatiary gland. correlated w/ MRI -Carotid US: mild intimal thickening, minimal plaque build up at common carotid bifurcation. w/o evidence of hemodynamically signfiicant stenosis -Echo: LV nml size. Moderate concentric LVH. LV systolic function normal. EF: 65%. no doppler evidence for Atrial septa defect. trace mitral/tricuspid regurg ASSESSMENT/PLAN: 64 F PMH DM p/w R-sided blurry vision for 1 day and aphasia. endorsed worsening Memory loss and aphasia X 2months. Awaiting rehab placement #CVA -MRI brain: multiple small non-hemorrhagic ACUTE infarctions delvin, temporal lobes. Old infarcts -neuro checks -aspiration precaution -fall precautions: on 1:1 b/c pt fell during this admission -passed speech and swallow -NIHSS 3 -c/w Plavix 75 mg PO Daily. consider loop recording for afib. -c/w atorvastatin 80 mg PO Daily, LDL goal <70 -BP goal of <140/90 -Pt is on tele. NSR, QTC 438 -PT: walked 50 ft rollling walker, unsteady gait #HTN -restarted home losartan 100 mg Daily & metoprolol 50 mg PO daily -BP goal of <140/90 #DM BGM ISS HgbA1C 6.1 #FEN d5-1/2 NS @42 ml/hr monitor lytes diabetic diet (soft,chopped diet) #DVT ppx lovenox 40 mg sq #DISPO maintain tele Visit type - Emergency Visit Emergency Visit: Yes ED Registration Date: 01/09/20 Care time: The patient presented to the Emergency Department on the above date and was hospitalized for further evaluation of their emergent condition. - New Patient This patient is new to me today: No - Critical Care Critical Care patient: No ATTENDING PHYSICIAN STATEMENT I saw and evaluated the patient. I reviewed the resident's note and discussed the case with the resident. I agree with the resident's findings and plan as documented. SUBJECTIVE: OBJECTIVE: ASSESSMENT AND PLAN:
[2020-01-11] MEDS: LOSARTAN POTASSIUM 50 MG TABLET (FP) PO SCH (16:40)
--- NOTE | 2020-01-11 18:25 | CON.NEURO ---
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 [employer] Home Medications - Allergies Allergies/Adverse Reactions: Allergies Allergy/AdvReac Type Severity Reaction Status Date / Time No Known Allergies Allergy Verified 01/09/20 19:59 - Home Medications Home Medications: Ambulatory Orders Aspirin [ASA -] 81 mg PO DAILY 01/10/20 Atorvastatin Ca [Lipitor] 20 mg PO HS 01/10/20 Glipizide/Metformin HCl [Glipizide-Metformin 5-500 mg] 1 each PO HS 01/10/20 Glipizide/Metformin HCl [Glipizide-Metformin 5-500 mg] 2 each PO DAILY 01/10/20 Losartan Potassium 100 mg PO DAILY 01/10/20 Metoprolol Succinate 50 mg PO DAILY 01/10/20 Multivitamin 1 each PO DAILY 01/10/20 Pioglitazone HCl 30 mg PO DAILY 01/10/20 Physical Exam-Neuro Vital Signs: Vital Signs Temperature 98.0 F 01/11/20 18:07 Pulse Rate 77 01/11/20 18:07 Respiratory Rate 16 01/11/20 18:07 Blood Pressure 152/75 01/11/20 18:07 O2 Sat by Pulse Oximetry (%) 96 01/11/20 18:07 Labs: CBC, BMP 01/11/20 06:20 01/11/20 06:20 INR, PTT INR 0.96 (0.83-1.09) 01/09/20 21:20 Assessment/Plan cc Multiple stroke bihemispheric HPI 64 year old female history of DM, came with word findings diffiuclty. She came with dysarthria and aphasi. Patient also complain of blurring of vision. Ct has no acute findins and subsequenly mri showed mulitple bihemispheric storke including bitemporal lobe and brain stem. Patinet seems to be improving, less confused. She denies any trauma, fever or cancer. She takes aspir and metformina at home. She lives at home with her Yesterday she got agitated nad today sh eis more calmer. SHe is on one to one. At admisison her NIH score was 4 PMH: DM PSH: meds: Metformin and aspirin Allergies: denies Social: denies smoking, drinking and drugs NEUROLOGICAL EXAMINATION Alert oriented x 3 speech is normal, no face asymmetry, moving all extremity sensaton and reflex are normal mri of brain showed bihemispheric strokes Assessment/Plan Acute temporal lobe stroke came with aphasia and subsequently she became confused as she may be developing cognitive dysfunction due to multiple infarct. Plan: Continue plavix and high dose of statin - acquisition advisor consult for DIAZ and Loop recording - continue supportive care - dvt prophylaxis, speech and pt - stroke education Thanking you so much Stas Nguyen MD
[2020-01-11] MEDS: ATORVASTATIN CA 80 MG TABLET (FP) PO SCH (22:42)
[2020-01-12] MEDS: INSULIN SLIDING SCALE (NOVOLOG) 1 VIAL SQ SCH ×2 (06:45→12:08)
[2020-01-12] MEDS: CLOPIDOGREL BISULFATE 75 MG TABLET (FP) PO SCH (09:25)
[2020-01-12] MEDS: ENOXAPARIN NA (PORCINE) 40 MG/0.4 ML DISP.SYRIN SQ SCH (09:26)
[2020-01-12] MEDS: LOSARTAN POTASSIUM 50 MG TABLET (FP) PO SCH (09:26)
[2020-01-12 10:54] VITALS: BP 131/77; PULSE 76; TEMP 97.9
--- NOTE | 2020-01-12 13:17 | PN ---
Teaching Attending Note Name of Resident: Mj Carrillo ATTENDING PHYSICIAN STATEMENT I saw and evaluated the patient. I reviewed the resident's note and discussed the case with the resident. I agree with the resident's findings and plan as documented. SUBJECTIVE: Patient feels well without complaints OBJECTIVE: Vital Signs Period Temp Pulse Resp BP Sys/Zeng Pulse Ox Last 24 Hr 97.8 F-98.0 F 57-81 16-18 128-159/60-82 94-96 As noted in resident note. Echo, Carotid Doppler, MRI/MRA, CTHead noted ASSESSMENT AND PLAN: 64 y/o F with PMH as noted who presents with vision changes, dysarthria and hx of falls. New onset CVA/TIA Patient noted to have multiple old stroke on CT Head, Acute strokes seen on MRI No signs of PFO on Echo, No Signs of arrythmia on tele Continue Plavix, Statin with goal LDL<70 Cardiology f.u for DIAZ/Loop recorder placement BP Goal <140/90 Plan for discharge today to Rehab Rest of plan as per resident note
--- NOTE | 2020-01-12 13:39 | PN ---
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 Pending d/c to [facility].
--- NOTE | 2020-01-12 13:48 | PN ---
Progress Note (short form) - Note Progress Note: HPI 64 year old female history of DM, came with word findings diffiuclty. She came with dysarthria and aphasi. Patient also complain of blurring of vision. Ct has no acute findins and subsequenly mri showed mulitple bihemispheric storke including bitemporal lobe and brain stem. Patinet seems to be improving, less confused. She denies any trauma, fever or cancer. She takes aspir and metformina at home. She lives at home with her Patinet is feeling better, seems to be back to baseline. NEUROLOGICAL EXAMINATION Alert oriented x 3 speech is normal, no face asymmetry, moving all extremity sensaton and reflex are normal mri of brain showed bihemispheric strokes Carotid ultrasound report reviewed Assessment/Plan Acute temporal lobe stroke came with aphasia and subsequently she became confused as she may be developing cognitive dysfunction due to mu ltiple infarct. Plan: Continue plavix and high dose of statin - meat counter clerk consult for DIAZ and Loop recording( can be done outpatient ) - continue supportive care - dvt prophylaxis, speech and pt - stroke education - waiting for rehab Thanking you so much Stas Nguyen MD
--- NOTE | 2020-01-12 17:11 | DS ---
Physical Exam: SUBJECTIVE: No overnight events. Patient seen and examined. Pt endorses sleeping well. OBJECTIVE: Vital Signs Period Temp Pulse Resp BP Sys/Zeng Pulse Ox Last 24 Hr 97.8 F-98.0 F 57-77 16-18 128-152/60-78 94-96 PHYSICAL EXAM GENERAL: The patient is awake, alert, and fully oriented, in no acute distress. mildly aphasic HEENT: Normal with no signs of trauma. No ptosis. moist mucous membranes. LUNGS: Breath sounds equal, clear to auscultation bilaterally, no wheezes, no crackles, no accessory muscle use. HEART: Regular rate and rhythm, S1, S2 without murmur, rub or gallop. ABDOMEN: Soft, nontender, nondistended, normoactive bowel sounds EXTREMITIES: 2+ pulses, warm, well-perfused, no edema. NEUROLOGICAL: Cranial nerves II through XII grossly intact. slightly slurred speech. gait not assessed. Strength 5/5 throughout. sensation intact throughout. Cerebellar function (finger to nose, heel to connor, rapid alternating movements) intact. PSYCH: Normal mood, normal affect. SKIN: Warm, dry, normal turgor, no rashes or lesions noted LABS Laboratory Results - last 24 hr 01/11/20 01/12/20 01/12/20 22:09 06:44 11:32 POC Glucometer 139 148 195 Laboratory Last Values WBC 6.6 K/mm3 (4.0-10.0) 01/11/20 06:20 RBC 4.61 M/mm3 (3.60-5.2) 01/11/20 06:20 Hgb 14.8 GM/dL (10.7-15.3) 01/11/20 06:20 Hct 42.8 % (32.4-45.2) 01/11/20 06:20 MCV 93.0 fl (80-96) 01/11/20 06:20 MCH 32.0 pg (25.7-33.7) 01/11/20 06:20 MCHC 34.4 g/dl (32.0-36.0) 01/11/20 06:20 RDW 13.1 % (11.6-15.6) 01/11/20 06:20 Plt Count 247 K/MM3 (134-434) 01/11/20 06:20 MPV 9.9 fl (7.5-11.1) 01/11/20 06:20 Absolute Neuts (auto) 4.6 K/mm3 (1.5-8.0) 01/10/20 06:00 Neutrophils % 69.0 % (42.8-82.8) 01/10/20 06:00 Lymphocytes % 19.1 % (8-40) 01/10/20 06:00 Monocytes % 8.3 % (3.8-10.2) 01/10/20 06:00 Eosinophils % 2.8 % (0-4.5) 01/10/20 06:00 Basophils % 0.8 % (0-2.0) 01/10/20 06:00 Nucleated RBC % 0 % (0-0) 01/10/20 06:00 PT with INR 11.30 SEC (9.7-13.0) 01/09/20 21:20 INR 0.96 (0.83-1.09) 01/09/20 21:20 PTT (Actin FS) 29.4 SECONDS (25.2-36.5) 01/09/20 21:20 Sodium 140 mmol/L (136-145) 01/11/20 06:20 Potassium 3.5 mmol/L (3.5-5.1) 01/11/20 06:20 Chloride 105 mmol/L (98-107) 01/11/20 06:20 Carbon Dioxide 24 mmol/L (21-32) 01/11/20 06:20 Anion Gap 11 MMOL/L (8-16) 01/11/20 06:20 BUN 5.8 mg/dL (7-18) L 01/11/20 06:20 Creatinine 0.7 mg/dL (0.55-1.3) 01/11/20 06:20 Est GFR (CKD-EPI)AfAm 107.62 01/11/20 06:20 Est GFR (CKD-EPI)NonAf 92.86 01/11/20 06:20 POC Glucometer 195 UNITS (80-120) 01/12/20 11:32 Random Glucose 147 mg/dL (74-106) H 01/11/20 06:20 Hemoglobin A1c % 6.1 % (4.2-6.3) 01/10/20 06:00 Calcium 9.8 mg/dL (8.5-10.1) 01/11/20 06:20 Phosphorus 3.5 mg/dL (2.5-4.9) 01/11/20 06:20 Magnesium 2.0 mg/dL (1.8-2.4) 01/11/20 06:20 Total Bilirubin 0.5 mg/dL (0.2-1) 01/10/20 06:00 AST 13 U/L (15-37) L 01/10/20 06:00 ALT 15 U/L (13-61) 01/10/20 06:00 Alkaline Phosphatase 80 U/L (45-117) 01/10/20 06:00 Creatine Kinase 76 U/L (26-192) 01/09/20 21:20 Troponin I < 0.02 ng/ml (0.00-0.05) 01/09/20 21:20 Total Protein 6.6 g/dl (6.4-8.2) 01/10/20 06:00 Albumin 3.2 g/dl (3.4-5.0) L 01/10/20 06:00 Triglycerides 104 mg/dL (0-150) 01/09/20 21:20 Cholesterol 182 mg/dL (50-200) 01/09/20 21:20 Total LDL Cholesterol 97 mg/dL (5-100) 01/09/20 21:20 HDL Cholesterol 66 mg/dL (40-60) H 01/09/20 21:20 Vitamin B12 365 pg/ml (193-986) 01/10/20 06:00 TSH 2.71 uIU/ml (0.358-3.74) 01/09/20 21:20 Free T4 1.18 ng/dl (0.76-1.46) 01/09/20 21:20 Urine Color Yellow 01/09/20 22:35 Urine Appearance Clear 01/09/20 22:35 Urine pH 7.0 (5.0-8.0) 01/09/20 22:35 Ur Specific Jackson 1.020 (1.010-1.035) 01/09/20 22:35 Urine Protein Negative (NEGATIVE) 01/09/20 22:35 Urine Glucose (UA) 2+ (NEGATIVE) H 01/09/20 22:35 Urine Ketones Trace (NEGATIVE) 01/09/20 22:35 Urine Blood Negative (NEGATIVE) 08/17/20 22:35 Urine Nitrite Negative (NEGATIVE) 01/09/20 22:35 Urine Bilirubin Negative (NEGATIVE) 01/09/20 22:35 Urine Urobilinogen 0.2 mg/dL (0.2-1.0) 01/09/20 22:35 Ur Leukocyte Esterase 1+ (NEGATIVE) H 01/09/20 22:35 Opiates Screen Negative ng/ml (TOHJHW=136) 01/10/20 09:00 Methadone Screen Negative ng/ml (TVNHHT=209) 01/10/20 09:00 Barbiturate Screen Negative ng/ml (MXUMDI=966) 01/10/20 09:00 Phencyclidine Screen Negative ng/ml (CUTOFF=25) 01/10/20 09:00 Ur Amphetamines Screen Negative ng/ml (MUQODS=788) 01/10/20 09:00 MDMA (Ecstasy) Screen Negative ng/ml (XJDHKT=789) 01/10/20 09:00 Benzodiazepines Screen Negative ng/ml (JQAJRH=659) 01/10/20 09:00 Cocaine Screen Negative ng/ml (CNDQUP=194) 01/10/20 09:00 U Marijuana (THC) Screen Negative ng/ml (CUTOFF=50) 01/10/20 09:00 Alcohol, Quantitative < 3 mg/dL (0.0-5.0) 01/09/20 21:20 COVID-19 (RYLIE) Not detected (Not Detected) 01/10/20 06:20 Blood Type O POSITIVE 01/10/20 08:35 Antibody Screen Negative 01/10/20 08:35 HOSPITAL COURSE: 64 F PMH DM p/w R-sided blurry vision for 1 day and aphasia. endorsed worsening Memory loss and aphasia X 2months. MRI showed multiple small non- hemorrhagic ACUTE infarctions in the lower and upper aspects of the delvin, temporal lobes. 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 MRA did not show evidence of [place], basilar artery stenosis, dissection,or occlusion. Carotid US showed mild intimal thickening, minimal plaque build up at common carotid bifurcation without evidence of hemodynamically signfiicant stenosis. Echo showed LV nml size; Moderate concentric LVH; LV systolic function normal; EF: 65%. no doppler evidence for Atrial septa defect. trace mitral/tricuspid regurg. Pt passed speech and swallow evaluation. Was started on Plavix 75 mg PO Daily. Started on w atorvastatin 80 mg PO Daily with a LDL goal <70. Advised pt to consider loop recording for afib. Pt stable for discharge. Date of Admission:01/09/20 CTH: multiple chronic b/l cerebral infarcts basal ganglia, frontal mei radiata. Punctuate chronic R thalamic infarct. Low attention focus in R upper delvin>chronic infarct vs wallerian degeneration. Periventricular & subcortical chronic microvascular ischemic changes. Mild b/l cerebellar atrophy CXR: weak inspiratory effort w/ resultant large heart EKG: NSR, 78 bpm, inferior infarct, age undetermined, QTC: 442 -MRI brain: multiple small non-hemorrhagic ACUTE infarctions in the lower and upper aspects of the delvin, R temporal lobe, L & R temporal lobes. Old infarct L pairetal lobe w/ residual enecephaloamalcia -MRA: no evidence of [place], basilar artery stenosis, dissection,or occlusion. Findings suggestive of enalrged pituatiary gland. correlated w/ MRI -Carotid US: mild intimal thickening, minimal plaque build up at common carotid bifurcation. w/o evidence of hemodynamically signfiicant stenosis -Echo: LV nml size. Moderate concentric LVH. LV systolic function normal. EF: 65%. no doppler evidence for Atrial septa defect. trace mitral/tricuspid regurg Date of Discharge: 01/12/20 Minutes to complete discharge: 47 Discharge Summary Problems reviewed: Yes Reason For Visit: ALTERED MENTAL STATUS Condition: Stable - Instructions Diet, Activity, Other Instructions: You came to the hospital for right-sided blurry vision and trouble finding words. Imaging of your brain showed new strokes and old strokes. This was managed with blood thinners and increase in your atorvastatin. Imaging of the blood vessels in your neck did NOT show narrowing. Echocardiogram of your heart did not show anything significant. You were evaluated by a neurologist who recommended follow-up with a transportation modeler for evaluation with a loop recorder, which would record your heart rhythm, to further evaluate a possible cause of your multiple strokes. Your symptoms improved. You are stable for discharge. MEDICATIONS Please STOP taking Aspirin. Please START taking the Plavix 75 mg once a day. Your atorvastatin (Lipitor) was INCREASED from 20 mg to 80 mg before bedtime. Please take your other home medications as prescribed. FOLLOW-UP Please follow-up with neurologist, Dr. Nguyen, for follow-up of your stroke. Please follow-up with your primary care physician, Dr. Marley, to discuss your recent hospitalization and regarding your general health maintenance. Please follow-up with transportation modeler, Dr. Hall, for evaluation for a loop recording and regarding your cardiac health. ADDITIONAL INSTRUCTIONS Please call 911 or come directly to the emergency department if you experience chest pain, shortness of breath, loss of alertness/awareness, loss of function, chest pain, unusual headache, vision change, difficulty speaking, numbness, tingling, unusual bleeding, or any alarming symptoms. Referrals: Stas Nguyen MD [Staff Physician] - (-MRI brain: acute infarctions in the lower and upper aspects of the delvin, temporal lobes. Old infarct L pairetal lobe w/ residual enecephaloamalcia -MRA: Findings suggestive of enlarged pituatiary gland. correlated w/ MRI -Carotid US: no evidence of hemodynamically signfiicant stenosis -Echo: LV nml size. Moderate concentric LVH. LV systolic function normal. EF: 65%. no doppler evidence for Atrial septa defect. trace mitral/tricuspid regurg plavix 75 mg PO daily ) Karen Marley MD [Primary Care Provider] - (acute infarcts, multiple old in farcts ) Tony Burrell MD [Staff Physician] - (acute infarcts multiple old infarcts please evaluate for DIAZ and Loop recording) Disposition: ASSISTED FACILITY - Home Medications Comprehensive Discharge Medication List: Ambulatory Orders Glipizide/Metformin HCl [Glipizide-Metformin 5-500 mg] 1 each PO HS 01/10/20 Glipizide/Metformin HCl [Glipizide-Metformin 5-500 mg] 2 each PO DAILY 01/10/20 Losartan Potassium 100 mg PO DAILY 01/10/20 Metoprolol Succinate 50 mg PO DAILY 01/10/20 Multivitamin 1 each PO DAILY 01/10/20 Pioglitazone HCl 30 mg PO DAILY 01/10/20 Atorvastatin Ca [Lipitor] 80 mg PO HS tablet 01/12/20 Clopidogrel Bisulfate [Plavix -] 75 mg PO DAILY tablet 01/12/20 This patient is new to me today: No Emergency Visit: Yes ED Registration Date: 01/09/20 Care time: The patient presented to the Emergency Department on the above date and was hospitalized for further evaluation of their emergent condition. Critical Care patient: No - Discharge Referral Referred to [facility] No ATTENDING PHYSICIAN STATEMENT I saw and evaluated the patient. I reviewed the resident's note and discussed the case with the resident. I agree with the resident's findings and plan as documented. SUBJECTIVE: OBJECTIVE: ASSESSMENT AND PLAN:
== END 2020-01-12 14:07 | DRG 64 ==
LOC: JER 19:38 → JERBED 23:21 → J4W 01-10 18:37
PROVIDERS: ADMIT Internal Medicine; ATTEND Internal Medicine
DX: I63.9 Cerebral infarction, unspecified (principal); G93.41 Metabolic encephalopathy; R29.704 NIHSS score 4; H53.8 Other visual disturbances; R47.1 Dysarthria and anarthria; I69.320 Aphasia following cerebral infarction; I69.393 Ataxia following cerebral infarction; Z11.59 Encounter for screening for other viral diseases
CPT/HCPCS: 36415; 70450-TC; 70544-TC; 70551-TC; 71045-TC-FY; 80048; 80053; 80061; 80307; 81003; 82550; 82607; 82962; 83036; 83721; 83735; 84100; 84439; 84443; 84484; 85025; 85027; 85610; 85730; 86850; 86900; 86901; 87086; 93005; 93010; 93306-TC; 93880-TC; 97116-GP; 97161-GP; 99285-25; U0003